=== PATIENT | male | born 1975 | race Caucasian/White ===

== ENCOUNTER 2020-11-28 17:43 | Emergency (ER) | payer MEDICAID ==
[~2020-11-28] VITALS: Ht 177.8 cm; Wt 76.0 kg
[~2020-11-28 17:43] MED LIST: ALBU18HF2 IH; CIP500T PO; CLIN150C8 PO; DEXT15LI38 PO; IBUP-1573 PO; IBUP-1984 PO; OMEP-84 PO; QUET25TA PO; RANI150C11 PO
[2020-11-28] MEDS ORDERED: ondansetron 4mg rapidly disintigrating tab PO ONE (18:10)
[2020-11-28] MEDS ORDERED: HYDROcodone/acetaminophen 5mg/325mg tablet PO ONE (18:10)
[2020-11-28 19:09] VITALS: BP 139/96
== END 2020-11-28 19:35 | disposition left against medical advice (07) ==
LOC: ER 17:44
DX: M79.622 Pain in left upper arm (principal); Z53.21 Procedure and treatment not carried out due to patient leaving prior to being seen by health care provider
CPT/HCPCS: 73030; 73060; 99284

== ENCOUNTER → 2021-08-25 | Emergency (ER) | payer MEDICAID ==
[~2021-08-25] VITALS: Ht 172.7 cm; Wt 77.0 kg
[~2021-08-25] MED LIST changes: +CEPH250T PO
[2021-08-25 16:40] VITALS: BP 156/107
== END | disposition home or self-care (01) ==
LOC: ER 16:35
DX: L02.414 Cutaneous abscess of left upper limb (principal); J45.909 Unspecified asthma, uncomplicated; Z86.14 Personal history of Methicillin resistant Staphylococcus aureus infection; F12.90 Cannabis use, unspecified, uncomplicated; F15.90 Other stimulant use, unspecified, uncomplicated; Z59.00 Homelessness unspecified; Z72.89 Other problems related to lifestyle; Z88.0 Allergy status to penicillin; Z79.2 Long term (current) use of antibiotics; Z79.899 Other long term (current) drug therapy
CPT/HCPCS: 10060; 99283

== ENCOUNTER 2021-11-04 10:29 | Emergency (ER) | payer MEDICAID ==
[~2021-11-04] VITALS: Ht 172.7 cm; Wt 72.7 kg
[~2021-11-04 10:29] MED LIST changes: -CEPH250T PO
[2021-11-04 10:38] VITALS: BP 112/79
== END 2021-11-04 13:34 | disposition left against medical advice (07) ==
LOC: ER 10:29
DX: M25.562 Pain in left knee (principal); Z88.0 Allergy status to penicillin; Z53.21 Procedure and treatment not carried out due to patient leaving prior to being seen by health care provider
CPT/HCPCS: 73564

== ENCOUNTER 2022-06-16 20:53 | Emergency (ER) | payer SELFPAY ==
[~2022-06-16] VITALS: Ht 177.8 cm; Wt 71.5 kg
[2022-06-16] MEDS ORDERED: sulfamethoxazole/trimethoprim DS (800/160mg) tablet PO ONE (23:10)
[2022-06-16] MEDS ORDERED: SULF1TAB49 PO ×3 (23:12→23:15)
[2022-06-16] MEDS ORDERED: ibuprofen tablet 400 MG TABLET PO ONE ×2 (23:30→23:40)
[2022-06-16 23:47] VITALS: BP 128/80
== END 2022-06-16 23:48 | disposition home or self-care (01) ==
LOC: ER 20:54
DX: L02.412 Cutaneous abscess of left axilla (principal); F12.10 Cannabis abuse, uncomplicated; F15.10 Other stimulant abuse, uncomplicated; J45.909 Unspecified asthma, uncomplicated; Z86.14 Personal history of Methicillin resistant Staphylococcus aureus infection; Z59.00 Homelessness unspecified; Z88.0 Allergy status to penicillin; Z79.899 Other long term (current) drug therapy; Z79.1 Long term (current) use of non-steroidal anti-inflammatories (NSAID); Z79.2 Long term (current) use of antibiotics
CPT/HCPCS: 99283

== ENCOUNTER 2023-10-14 01:36 | Emergency (ER) | payer MEDICAID ==
[~2023-10-14] VITALS: Ht 177.8 cm; Wt 77.5 kg
[~2023-10-14 01:36] MED LIST changes: +CLIN-214 PO; -CLIN150C8 PO; +SULF1TAB49 PO
[2023-10-14 01:43] VITALS: BP 170/100; PULSE 87; RESP 16; TEMP 98.2; O2SAT 99
== END 2023-10-14 04:14 | disposition left against medical advice (07) ==
LOC: ER 01:37
DX: K08.89 Other specified disorders of teeth and supporting structures (principal); Z53.21 Procedure and treatment not carried out due to patient leaving prior to being seen by health care provider
CPT/HCPCS: 99281

== ENCOUNTER 2024-04-15 13:35 | Emergency (ER) | payer MEDICAID ==
[~2024-04-15] VITALS: Ht 177.8 cm; Wt 72.0 kg
[2024-04-15] MEDS: TETanus/Pertussis (Acell)/Diphther VAC/PF (Tdap-Adult) 0.5ml syringe IMVAC ONE (17:02)
[2024-04-15] MEDS: CefTRIAXone 1000mg IM Kit (w/lidocaine diluent) IM ONE (17:03)
[2024-04-15] MEDS ORDERED: CEPH-585 PO (17:09)
[2024-04-15] MEDS ORDERED: SULF1TAB49 PO (17:09)
[2024-04-15 17:30] VITALS: BP 125/77; PULSE 67; RESP 15; TEMP 98.4; O2SAT 99
== END 2024-04-15 17:31 | disposition home or self-care (01) ==
LOC: ER 13:36
DX: L03.113 Cellulitis of right upper limb (principal); J45.909 Unspecified asthma, uncomplicated; F17.200 Nicotine dependence, unspecified, uncomplicated; F19.10 Other psychoactive substance abuse, uncomplicated; F12.90 Cannabis use, unspecified, uncomplicated; F15.90 Other stimulant use, unspecified, uncomplicated; Z88.0 Allergy status to penicillin; Z79.899 Other long term (current) drug therapy; Z79.2 Long term (current) use of antibiotics; Z79.1 Long term (current) use of non-steroidal anti-inflammatories (NSAID); Z60.2 Problems related to living alone; Z56.0 Unemployment, unspecified
CPT/HCPCS: 90471; 90715; 96372; 99284; J0696